=== PATIENT | male | born 1975 | race Hispanic/Latino ===

== ENCOUNTER 2023-05-22 12:05 | Emergency (ER) | payer OTHER ==
--- OUTSIDE RECORDS SUMMARY | 2023-05-22 12:07 | XMS REPORT | Continuity of Care Document ---
:1975 Author Organization [facility] t Address [address] [place] [address] [place] [id number] Care Team Providers Name Role Phone PCP, PATIENT DOES NOT HAVE A Primary Care Physician Unavaila MARION Dennison Attending Clinician Unavailable Marion Goldstein Attending Clinician MARION VILLA Admitting Clinician Unavailable Problems Condition Condition Condition Status Onset Resolution Last Treating Co mments Source Name Details Category Date Date Treatment Clinician Date No known No known Disease Unive rs active active ity of problems problems [facility] Allergies, Adverse Reactions, Alerts Allergy Allergy Status Severity Reaction(s) Onset Inactive Treating Comm ents Source Name Type Date Date Clinician NO KNOWN Drug Active Univers ALLERGIE Class ity of S [facility] Social History Social Habit Start Date Stop Date Quantity Comments Source Exposure to 2022-07-10 2022-07-20 Not sure [facility] SARS-CoV-2 (event) 00:00:00 10:55:00 Medica l Branch Sex Ass[birth year] [facility] y of [place] 00:00:00 00:00:00 Medical Branch Smoking Status Start Date Stop Date Source Tobacco smoking consumption [facility] Medical unknown Branch Medications Ordered Filled Start Stop Current Ordering Indication Dosage Frequency Signature Comments Components Source Medication Medication Date Date Medication? Clinician (SIG) Name Name clindamycin 600mg 600 mg, IV Univers in 5 % 07-20 Piggyback, ity of dextrose 16:45: 17:25 ONCE, 1 [place] (CLEOCIN) 00 :00 dose, On Medica l 600 mg/50 Sat07/20/22 Bran ch mL IV at 1145, piggyback Administer RTU 600 mg over 30 Minutes, 50 mL
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
Duration of Therapy: Other (see Comments)< br>Restric mychal use approved by: ED PROVIDER clindamycin No [id number] 450mg Take 3 Univers 150 mg 07-20 [id number] capsules ity of capsule 00:00: 04:59 by mouth [place] 00 :00 in the Medical morning Branch and 3 capsules at noon and 3 capsules in the evening. Do all this for 10 days. Vital Signs Vital Name Observation Time Observation Value Comments Source Systolic blood 2022-07-20 18:00:00 120 mm[Hg] [facility] Diastolic blood 2022-07-20 18:00:00 82 mm[Hg] [facility] Heart rate 2022-07-20 18:00:00 68 /min [facility] Respiratory rate 2022-07-20 18:00:00 19 /min [facility] Oxygen saturation in 2022-07-20 18:00:00 97 /min [facility] Arterial blood by [facility] Pulse oximetry [place] Body temperature 2022-07-20 16:02:00 36.11 Nerissa [facility] Body weight 2022-07-20 16:02:00 140.615 kg [facility] Procedures Procedure Date / Time Performed Performing Clinician Sour e URINALYSIS 2022-07-20 17:14:00 Marion Villa [place] o [facility] XR FOOT 3+ VW RIGHT 2022-07-20 16:22:54 Marion Villa [facility] COVID-19 (ID NOW RAPID 2022-07-20 16:20:00 Marion Villa [facility] TESTING) [facility] COMP. METABOLIC PANEL 2022-07-20 16:14:00 Marion Villa [facility] ([id number]) [facility] CBC WITH DIFF 2022-07-20 16:14:00 Marion Villa [place] o [facility] LACTIC ACID WHOLE 2022-07-20 16:11:00 Marion Villa [facility] CONSENT/REFUSAL FOR 2022-07-20 15:57:26 Doctor Unassigned, No Un [facility] DIAGNOSIS AND Name Medical [place] TREATMENT Encounters Start End Encounter Admission Attending Care Care Encounter Source Date/Time Date/Time Type Type Clinicians Facility Department ID 2022-07-20 2022-07-20 Emergency [facility] [id number] [facility] 11:04:00 13:36:[address] [facility] 2022-07-20 2022-07-20 [facility] [id number] Univers 11:04:00 13:36:00 Marion Mohan [place] [id number] i ty [facility] [id number] [facility] [id number] [address] Results Test Description Test Time Test Comments Results Result Comments Source Lactic Acid Whole Blood 2022-07-20 17:08:06 Test Item Value Reference Range Interpretation Comme nts LACTIC ACID (test code = 9598477122) 1.71 mmol/L 0.5-2.2 Lab Interpretation (test code = 92739-9) Normal [facility] [id number] 16:53:06 Test Item Value Reference Range Interpretation Comments WBC (test code = See_Comment H [Automated 0490-2) message] The sy stem which generated this result transmitted reference range : 4.20 - 10.70 10*3/?L. The reference range was not used to interpret this result as normal/abnormal . RBC (test code = See_Comment L [Automated 789-8) message] The sy stem which generated this result transmitted reference range : 4.26 - 5.52 10*6/?L. The reference range was not used to interpret this result as normal/abnormal . HGB (test code = 13.6 g/dL 12.2-16.4 718-7) HCT (test code = 38.6 % 38.4-49.3 4544-3) MCV (test code = 90.8 fL 81.7-95.6 787-2) MCH (test code = 32.0 pg 26.1-32.7 785-6) MCHC (test code = 35.2 g/dL 31.2-35 H 786-4) RDW-SD (test code = 41.7 fL 38.5-51.6 20853-8) RDW-CV (test code = 12.7 % 12.1-15.4 788-0) PLT (test code = See_Comment [Automated 777-3) message] The sy stem which generated this result transmitted reference range : 150 - 328 10*3/ ?L. The reference r jaki was not used to interpret this result as normal/abnormal . MPV (test code = 10.4 fL 9.8-13 43273-9) NRBC/100 WBC (test See_Comment [Automat ed code = 0114760234) message] The system which generated this result transmitted reference range : 0.0 - 10.0 /100 WBCs. The refer ence range was not u sed to interpret th is result as normal/abnormal . NRBC x10^3 (test code See_Comment [Auto mated = 2439918353) message] The s ystem which generated this result transmitted reference range : 10*3/?L. The reference range was not used to interpret this result as normal/abnormal . GRAN MAT (NEUT) % 64.4 % (test code = 770-8) IMM GRAN % (test code 0.60 % = 4345929206) LYMPH % (test code = 28.1 % 736-9) MONO % (test code = 5.9 % 5905-5) EOS % (test code = 0.7 % 713-8) BASO % (test code = 0.3 % 706-2) GRAN MAT x10^3(ANC) 7.75 10*3/uL 1.99-6.95 H (test code = 0078958816) IMM GRAN x10^3 (test 0.07 10*3/uL 0-0.06 H code = 5280548786) LYMPH x10^3 (test code 3.38 10*3/uL 1.09-3.23 H = 731-0) MONO x10^3 (test code 0.71 10*3/uL 0.36-1.02 = 742-7) EOS x10^3 (test code = 0.08 10*3/uL 0.06-0.53 711-2) BASO x10^3 (test code 0.04 10*3/uL 0.01-0.09 = 704-7) Lab Interpretation Abnormal (test code = 93534-3) [facility]. Metabolic Panel ([id number])2022-07-20 16:49:44 Test Item Value Reference Range Interpretation Comments NA (test code = 137 mmol/L 135-145 8368549032) K (test code = 4.6 mmol/L 3.5-5 3326996330) CL (test code = 103 mmol/L 98-108 4316127597) CO2 TOTAL (test code = 27 mmol/L 23-31 3182395276) AGAP (test code = 2-16 1654973880) BUN (test code = 16 mg/dL 7-23 4655057488) GLUCOSE (test code = 250 mg/dL 70-110 H 3139406765) CREATININE (test code = 0.75 mg/dL 0.6-1.25 1801618479) TOTAL BILI (test code = 0.8 mg/dL 0.1-1.1 9241645216) CALCIUM (test code = 8.8 mg/dL 8.6-10.6 8284617452) T PROTEIN (test code = 6.5 g/dL 6.3-8.2 0917399653) ALBUMIN (test code = 4.1 g/dL 3.5-5 4883157159) ALK PHOS (test code = 64 U/L 34-122 0610275399) ALTv (test code = 26 U/L 5-50 1742-6) AST(SGOT) (test code = 27 U/L 13-40 9029765392) eGFR (test code = mL/min/1.73m2 3516166063) RAUL (test code = RAUL) Association of Glomerular Filtration Rate (GFR) and Staging of Kidney Disease* + --+ --+ ------+| GFR (mL/min/1.73 m2) ?| With Kidney Damage ?| ?Without Kidney Damage+ --------+ --------+ +| ?>90 ?| ?Stage one ?| ? Normal ?+ ---+ ---+ -------+| ?60-89 ?| ?Stage two ?| ? Decreased GFR ? + --+ --+ ------+| ?30-59 ?| ?Stage three ?| ? Stage three ? + --+ --+ ------+| ?15-29 ?| ?Stage four ? | ? Stage four ?+ ---+ ---+ -------+| ?<15 (or dialysis) ? ?| ?Stage five ? | ? Stage five ?+ ---+ ---+ -------+ *Each stage assumes the associated GFR level has been in effect for at least three months. ?Stages 1 to 5, with or without kidney disease, indicate chronic kidney disease. Notes: Determination of stages one and two (with eGFR >59mL/min/1.73 m2) requires estimation of kidney damage for at least three months as defined by structural or functional abnormalities of the kidney, manifested by either:Pathological abnormalities or Markers of kidney damage (including abnormalities in the composition of the blood or urine or abnormalities in imaging tests). Lab Interpretation Abnormal (test code = 40137-3) [facility]"
--- NOTE | 2023-05-22 13:06 | EDPHYS ---
Physician Documentation [facility] Name: Cedric Lyles Age: 47 yrs Sex: Male : 1975 Arrival Date: 05/22/2023 Time: 12:05 Bed 6 Private MD: ED Physician Gerardo Canela HPI: 05/22 13:05 This 47 yrs old Male presents to ER via Ambulatory with complaints of ms3 Dizziness, Low BP, Sweating. 13:05 47-year-old male with past medical history of atrial fibrillation, congestive heart ms3 failure, diabetes, hypertension presents to the emergency department for hypotension, dizziness and sweating. Patient states when he awoke this morning he noted his blood pressure to be 92/54 and states he was having dizziness at that time. Patient states he took his home medications this morning and his blood pressures continue to decrease. Patient states he is currently on a LifeVest. Patient denies pain at this time. Patient denies alleviating or inciting factors.. Historical: - Allergies: 12:22 No Known Allergies; bp - Home Meds: 12:22 Entresto oral [Active]; Metoprolol Tartrate Oral [Active]; Jardiance oral [Active]; bp Amiodarone Oral [Active]; atorvastatin oral [Active]; Eliquis oral [Active]; - PMHx: 12:22 Congestive heart failure; Diabetes mellitus; Hypertensive disorder; Atrial fibrillation;bp - Immunization history:: Adult Immunizations up to date. - Social history:: Smoking status: Patient denies any tobacco usage or history of. ROS: 13:05 Constitutional: Negative for fever, and chills. Eyes: Negative for injury, pain, ms3 redness, and discharge, Cardiovascular: Negative for chest pain, and palpitations. Respiratory: Negative for shortness of breath, cough, wheezing, and pleuritic chest pain, Abdomen/GI: Negative for abdominal pain, nausea, vomiting, diarrhea, and constipation, MS/Extremity: Negative for injury and deformity. 13:05 Skin: Positive for diaphoresis. 13:05 Neuro: Positive for dizziness. 13:05 All other systems are negative. Exam: 13:05 Constitutional: This is a well developed, well nourished patient who is awake, alert, ms3 and in no acute distress. Head/Face: Normocephalic, atraumatic. Neck: Trachea midline, no cervical lymphadenopathy. Supple, full range of motion without nuchal rigidity, or vertebral point tenderness. No Meningismus. Chest/axilla: Normal chest wall appearance and motion. Nontender with no deformity. Cardiovascular: Regular rate and rhythm with a normal S1 and S2. No gallops, murmurs, or rubs. Normal PMI, no JVD. No pulse deficits. Respiratory: Lungs have equal breath sounds bilaterally, clear to auscultation and percussion. No rales, rhonchi or wheezes noted. No increased work of breathing, no retractions or nasal flaring. Abdomen/GI: Soft, non-tender, with normal bowel sounds. No distension or tympany. No guarding or rebound. No evidence of tenderness throughout. Skin: Warm, dry with normal turgor. Normal color with no rashes, no lesions, and no evidence of cellulitis. MS/ Extremity: Pulses equal, no cyanosis. Neurovascular intact. Full, normal range of motion. 15:37 ECG was reviewed by the Attending Physician. ms3 Vital Signs: 12:20 BP 86 / 69; Pulse 81; Resp 15; Temp 98.5; Pulse Ox 99% ; Weight 138.35 kg; Height 6 ft. bp 0 in. ; 12:55 BP 87 / 63; Pulse 79; Resp 19; Pulse Ox 97% ; bp 14:48 BP 97 / 60; Pulse 66; Resp 13; Pulse Ox 99% ; bp 12:20 Body Mass Index 41.37 (138.35 kg, 182.88 cm) bp MDM: 12:23 Patient medically screened. ms3 13:05 Differential diagnosis: cardiac arrhythmia, Myocardial infarction versus cardiogenic ms3 shock. 13:07 ED course: Case discussed with Dr Florentino and he recommends transfer.. ms3 14:39 ED course: Patient and his wish to be transferred to [facility] where his fl3 cardiology group is. Discussed case with Cardiology at [facility] and he will consult on patient.. 18:15 Data reviewed: vital signs, nurses notes, lab test result(s), EKG, radiologic studies, ms3 and as a result, I will Transfer patient. Consideration of Admission/Observation Patient transferred. Management of patient was discussed with the following: Glass Mechanic: Cardiology at [facility]. I considered the following discharge prescriptions or medication management in the emergency department Medications were administered in the Emergency Department. See MAR. Independent interpretation of the following test(s) in the Emergency Department EKG: See my EKG interpretation above media monitor: rate is 65 beats/min, Rhythm is normal sinus rhythm, regular, with no ectopy, Interpretation: normal rate, normal rhythm. Historians other than the Patient: Spouse/Significant Other: Patient's . Counseling: I had a detailed discussion with the patient and/or guardian regarding: the historical points, exam findings, and any diagnostic results supporting the discharge/admit diagnosis, lab results, radiology results, the need to transfer to another facility, for higher level of care. 05/22 12:23 Order name: Basic Metabolic Panel; Complete Time: 13:55 ms3 05/22 12:23 Order name: CBC with Diff; Complete Time: 13:55 ms3 05/22 12:23 Order name: LFT's; Complete Time: 13:55 ms3 05/22 12:23 Order name: Magnesium; Complete Time: 13:55 ms3 05/22 12:23 Order name: NT PRO-BNP; Complete Time: 13:55 ms3 05/22 12:23 Order name: PT-INR; Complete Time: 13:55 ms3 05/22 12:23 Order name: Troponin HS; Complete Time: 13:55 ms3 05/22 13:56 Order name: Blood Culture Adult (2) ms3 05/22 13:56 Order name: CMP; Complete Time: 15:40 ms3 05/22 13:56 Order name: Lactate w/ 2H reflex if indic.; Complete Time: 15:40 ms3 05/22 13:56 Order name: Ptt, Activated; Complete Time: 15:40 ms3 05/22 12:23 Order name: XRAY Chest (1 view); Complete Time: 13:55 ms3 05/22 12:23 Order name: EKG; Complete Time: 12:24 ms3 05/22 12:23 Order name: Cardiac monitoring; Complete Time: 12:26 ms3 05/22 12:23 Order name: EKG - Nurse/Tech; Complete Time: 12:26 ms3 05/22 12:23 Order name: IV Saline Lock; Complete Time: 12:59 ms3 05/22 12:23 Order name: Labs collected and sent; Complete Time: 12:59 ms3 05/22 12:23 Order name: O2 Per Protocol; Complete Time: 12:26 ms3 05/22 12:23 Order name: O2 Sat Monitoring; Complete Time: 12:26 ms3 05/22 13:56 Order name: Accucheck; Complete Time: 14:26 ms3 05/22 13:56 Order name: IV Saline Lock - Large Bore; Complete Time: 14:26 ms3 05/22 13:56 Order name: Vital Signs; Complete Time: 14:26 ms3 EC:37 Rate is 80 beats/min. Rhythm is regular. QRS [place] is Normal. [place] interval is normal. QRS ms3 interval is normal. Clinical impression: NSR w/ Non-specific ST/T Changes. Interpreted by me. Reviewed by me. Administered Medications: 14:41 Drug: Rocephin IV 1 grams Route: IV; Rate: calculated rate; Site: left wrist; bp Disposition Summary: 05/22/23 13:05 Transfer Ordered Transfer Location: Other Acute Care Facility ms3 Reason: Higher level of care ms3 Condition: Stable ms3 Problem: new ms3 Symptoms: are unchanged ms3 Accepting Physician: (05/22/23 15:45) jessica Diagnosis - Heart failure, unspecified ms3 - Hypotension, unspecified ms3 Forms: - Medication Reconciliation Form ms3 - SBAR form ms3 Signatures: Dispatcher [employer] Jeanie Mcgrath, RN RN Thang Whittaker RN RN Gerardo Davison DO DO ms3 Corrections: (The following items were deleted from the chart) 15:45 13:05 ms3 iw
--- NOTE | 2023-05-22 13:06 | ER ---
Nurse's Notes [facility] Name: Cedric Lyles Age: 47 yrs Sex: Male : 1975 Arrival Date: 05/22/2023 Time: 12:05 Bed 6 Private MD: Diagnosis: Heart failure, unspecified;Hypotension, unspecified Presentation: 05/22 12:20 Chief complaint: Patient states: LOW BP AND NEAR-SYNCOPE AT HOME. Coronavirus screen: bp At this time, the client does not indicate any symptoms associated with coronavirus-19. Ebola Screen: No symptoms or risks identified at this time. Initial Sepsis Screen: Does the patient meet any 2 criteria? No. Patient's initial sepsis screen is negative. Does the patient have a suspected source of infection? No. Patient's initial sepsis screen is negative. Risk Assessment: Do you want to hurt yourself or someone else? Patient reports no desire to harm self or others. Onset of symptoms was May 22, 2023. 12:20 Method Of Arrival: Ambulatory bp 12:20 Acuity: RACHELE 3 bp Triage Assessment: 12:22 General: Appears distressed, Behavior is calm, cooperative, appropriate for age. Pain: bp Denies pain. EENT: No deficits noted. Neuro: Reports NEAR SYNCOPE. Cardiovascular: PT WEARING LIFE VEST. Respiratory: No deficits noted. GI: No signs and/or symptoms were reported involving the gastrointestinal system. : No signs and/or symptoms were reported regarding the genitourinary system. Derm: No deficits noted. Musculoskeletal: No deficits noted. Historical: - Allergies: 12:22 No Known Allergies; bp - Home Meds: 12:22 Entresto oral [Active]; Metoprolol Tartrate Oral [Active]; Jardiance oral [Active]; bp Amiodarone Oral [Active]; atorvastatin oral [Active]; Eliquis oral [Active]; - PMHx: 12:22 Congestive heart failure; Diabetes mellitus; Hypertensive disorder; Atrial fibrillation;bp - Immunization history:: Adult Immunizations up to date. - Social history:: Smoking status: Patient denies any tobacco usage or history of. Screenin:25 [facility] ED Fall Risk Assessment (Adult) History of falling in the last 3 months, bp including since admission No falls in past 3 months (0 pts). Abuse screen: Denies threats or abuse. Denies injuries from another. Nutritional screening: No deficits noted. Tuberculosis screening: No symptoms or risk factors identified. Assessment: 12:25 General: SEE TRIAGE NOTE. bp 14:50 Reassessment: TRANSFER IN PROCESS. bp 15:18 Reassessment: Patient appears in no apparent distress at this time. Patient and/or iw family updated on plan of care and expected duration. Pain level reassessed. Patient is alert, oriented x 3, equal unlabored respirations, skin warm/dry/pink. Patient states feeling better. Patient states symptoms have improved. Vital Signs: 12:20 BP 86 / 69; Pulse 81; Resp 15; Temp 98.5; Pulse Ox 99% ; Weight 138.35 kg; Height 6 ft. bp 0 in. ; 12:55 BP 87 / 63; Pulse 79; Resp 19; Pulse Ox 97% ; bp 14:48 BP 97 / 60; Pulse 66; Resp 13; Pulse Ox 99% ; bp 12:20 Body Mass Index 41.37 (138.35 kg, 182.88 cm) bp ED Course: 12:06 Patient arrived in ED. rg4 12:09 Thang Logan, RN is Primary Nurse. bp 12:15 Gerardo Canela DO is Attending Physician. ms3 12:21 Triage completed. bp 12:22 Arm band placed on. bp 12:25 Patient has correct armband on for positive identification. Bed in low position. Call bp light in reach. Side rails up X2. Adult w/ patient. Client placed on continuous cardiac and pulse oximetry monitoring. NIBP monitoring applied. 12:43 Missed attempt(s): 20 gauge in right hand. 22 gauge in right wrist. Bleeding mb4 controlled, band aid applied, catheter tip intact. 12:59 Inserted saline lock: 20 gauge in left wrist, using aseptic technique. Blood collected. bp 13:19 XRAY Chest (1 view) In Process Unspecified. EDMS 14:01 initiated a transfer with Diaz from the [facility] transfer center at the request of the eb patient. 14:35 connected the rotor assembler for [facility] with Dr. Canela for patient transfer eb consultation. 15:18 No provider procedures requiring assistance completed. iw 15:45 Patient transferred, IV remains in place. iw Administered Medications: 14:41 Drug: Rocephin IV 1 grams Route: IV; Rate: calculated rate; Site: left wrist; bp Medication: 12:25 VIS not applicable for this client. bp Outcome: 13:05 ER care complete, transfer ordered by . ms3 15:45 Transferred by ground EMS L[facility] to [facility]. Transfer form completed. X-rays sent w/ iw patient. 15:45 Condition: stable iw 15:45 Discharge instructions given to patient, Instructed on the need for transfer. 15:45 Patient left the ED. iw Signatures: Dispatcher [employer] Jeanie Mcgrath, RN RN iw Aim Emanuel rg4 Thang Logan RN RN Daphne Junior Mackenzie mb4 Gerardo Canela, DO ms3
[2023-05-22 13:20] LABS: Absolute Lymphocytes (CBC) 3.1 K/uL (0.7-4.9); Hematocrit 49.3 % (39.6-49.0); MCV 90.1 fL (80-100); MPV 8.2 fL (7.6-11.3); Protime INR 1.22; RBC Red Blood Cell Count 5.47 M/uL (4.33-5.43)
--- NOTE | 2023-05-22 13:33 | RAD REPORT ---
EXAM DESCRIPTION: Dru Single View05/22/2023 1:18 pm CLINICAL HISTORY: Syncope/ hypertension COMPARISON: none FINDINGS: Opacity medial right upper lobe Remaining lungs appear clear. Heart is normal size. Battery packs overlie the chest IMPRESSION: Opacity medial right upper lobe may indicate pneumonia or mass. CT chest may be helpful for further evaluation
[2023-05-22 13:43] LABS: Albumin 3.8 g/dL (3.4-5.0); Bilirubin Direct 0.1 mg/dL (0-0.2); Bilirubin Indirect, Calculated 0.4 mg/dL (0.2-0.8); Bilirubin Total 0.5 mg/dL (0.2-1.0); Magnesium 2.1 mg/dL (1.6-2.4); Potassium 4.5 mEq/L (3.5-5.1); Protein, Total 7.5 g/dL (6.4-8.2); Troponin High Sensitivity 4.7 pg/mL (<58.9)
[2023-05-22] MEDS ORDERED: CEFTRIAXONE 1000 MG/VIAL ONE (14:43)
[2023-05-22] MEDS ORDERED: NA CHLORIDE 0.9% 100 ML ONE (14:43)
[2023-05-22 15:04] LABS: Albumin 3.6 g/dL (3.4-5.0); Bilirubin Total 0.4 mg/dL (0.2-1.0); Potassium 4.5 mEq/L (3.5-5.1); Protein, Total 7.2 g/dL (6.4-8.2)
[2023-05-22 15:50] VITALS: TEMP 98.5
[2023-05-22 15:53] VITALS: BP 97/60; O2SAT 99
--- NOTE | 2023-05-23 12:16 | EKG ---
Test Date: 2023-05-22 Test Time: 12:24:40 Fur Finisher Seamstress: DORIS MEASUREMENT RESULTS: Intervals: Rate: 80 IA: 160 QRSD: 94 QT: 390 QTc: 449 [place]: P: 31 IA: 160 QRS: 94 T: 62 INTERPRETIVE STATEMENTS: Normal sinus rhythm Anterior infarct, age undetermined Abnormal ECG No previous ECG available for comparison Electronically Signed On 05-23-23 12:13:54 CDT by Tin Florentino
== END 2023-05-22 15:45 ==
LOC: ER 12:05
DX: I50.9 Heart failure, unspecified (principal); I10 Essential (primary) hypertension; I48.91 Unspecified atrial fibrillation; Z79.01 Long term (current) use of anticoagulants; E11.9 Type 2 diabetes mellitus without complications
CPT/HCPCS: 93005; 87040 ×2; 85025; 80048; 36415; 83735; 85610; 80076; 83605; 85730; 84484; 80053; 83880; 71045; 96374; 99285; J0696